=== PATIENT | male | born 1990 | race African-American/Black ===

== ENCOUNTER 2023-01-18 01:45 | Emergency (ER) | payer OTHER, SELFPAY ==
--- NOTE | 2023-01-18 02:03 | ED_ITS ---
HPI - Abdominal Pain General Stated Complaint: sharp pain in abd Time Seen by Provider: 01/18/23 01:45 History of Present Illness HPI narrative: 32-year-old male nonsmoker with noncontributory medical history presents with a chief complaint of a sudden onset tearing and burning type pain in his abdomen near his umbilicus this evening. 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 He states that he noticed a bulge at the upper aspect of his umbilicus and when discussing with his superior she was instructed to present to the emergency department. He denies any fever or chills. He has had no nausea or vomiting. He has no constipation and is able to pass gas. Review of Systems Review of Systems Narrative: GENERAL: Denies chills, fatigue, malaise, fever, sweats. HEENT: Denies sinus pain, ear pain, sore throat, difficulty swallowing, dizziness. RESPIRATORY: Denies dyspnea, cough, wheezing, hemoptysis, sputum. CARDIOVASCULAR: Denies chest pain, palpitations, orthopnea, edema, GASTROINTESTINAL: See HPI : Denies dysuria, frequency, incontinence, hematuria, urinary retention. MUSCULOSKELETAL: denies weakness, joint pain, or bony pain SKIN: Denies rash, skin lesions, or other NEUROLOGIC: Denies weakness, headache, numbness, change in speech, confusion, seizures, incoordination. PSYCHIATRIC: No concerning psychosocial issues. 12 point review of systems is negative except for those stated above Exam Narrative Exam Narrative: GEN: AOx3 and in mild distress EYES: Pupils are equal, round, and reactive to light and accommodation. Extraoccular muscles are intact bilaterally. There is no subconjunctival hemorrhage or exudate. CHEST: Lungs are clear to auscultation bilaterally and free of wheezes, rales, or rhonchi. Heart rate is regular rhythm, there are no murmurs, clicks, rubs, or gallops. There is no chest wall tenderness. ABD: Small bulge consistent with hernia in the superior aspect of the umbilicus, no overlying erythema or warmth, bowel sounds present, with hips and knees flexed this hernia is easily reducible and patient has significant improvement in symptoms EXT: Full painless ROM of all extremities with no loss of sensation or strength. SKIN: Warm, pink, and dry. No erythema or rash MDM - Abdominal Pain MDM Narrative Medical decision making narrative: [32] year old patient presents with periumbilical pain and swelling Multiple etiologies for patient's symptoms considered including, but not limited to: [Hernia versus other] No other charts available for review Primary Historian: patient Patient's symptoms improved over duration of stay with above-stated therapies. Patient's history and physical exam are very reassuring and he presents with a classic presentation of a small, new umbilical hernia. It is easily and quickly reduced with significant improvement in patient's symptoms. He is given return precautions and encouraged to follow-up Findings and discharge diagnosis discussed with patient/family followed by verbalization of understanding Return precautions discussed with patient/family whom verbalize understanding of diagnosis and plan Discharge Plan Departure Patient Disposition: Home Clinical Impression: Hernia, umbilical Instructions: Abdominal Hernia Activity Restrictions/Additional Instructions: *You have been diagnosed with [easily reducible umbilical hernia *What to do: *Please continue to take your regular medications as directed. *Please follow up with your primary care provider in 2-3 days, call for an appointment. Let them know you were seen in the Emergency Department and that we ask that you be seen in follow up. We will electronically transmit a record of today's note if your PCP is in our system * as we discussed avoidance of heavy lifting, constipation, straining on the toilet and other circumstances that build pressure in your abdomen will help prevent the likelihood that your hernia becomes a problem. *Return to Emergency Department if you should have any new, worsening or concerning symptoms, such as [fever greater than 101 F, shaking chills, worsening pain, persistent vomiting or other bothersome symptoms] Referrals: ProviderHillary [Primary Care Provider] - Stand Alone Forms: Patient Portal/API
[2023-01-18 02:05] VITALS: BP 124/70; PULSE 56; RESP 18; TEMP 36.6; O2SAT 99
--- NOTE | 2023-01-18 02:12 | PC.NURSE ---
DR carvalho reduced his abd. hernia at bedside.
== END 2023-01-18 02:10 | disposition home or self-care (01) ==
PROVIDERS: Emergency Provider Emergency Medicine
DX: K42.9 Umbilical hernia without obstruction or gangrene (principal)
CPT/HCPCS: 99281